=== PATIENT | female | born 1945 | race Caucasian/White ===

== ENCOUNTER 2020-06-22 18:03 | Inpatient (IN) | payer MEDICARE ==
[~2020-06-22] VITALS: Ht 160 cm; Wt 65.3 kg
--- NOTE | 2020-06-22 18:15 | NUR ---
bettina c/o hypoglycemia from b and c bs upon arrival was 21 d10 was given bs went up to 221. vs checked. awaiting md lanier
[2020-06-22] MEDS ORDERED: DEXTROSE 50%-WATER 50 ML DISP.SYRIN ONE (18:39)
--- NOTE | 2020-06-22 18:39 | NUR ---
PT TO CT
--- NOTE | 2020-06-22 18:44 | NUR ---
TELEMED REQUEST SENT
--- NOTE | 2020-06-22 18:49 | NUR ---
PT RETURN FROM CT
[2020-06-22 18:56] LABS: BASOPHILS # (AUTO) 0.4 /CMM (0.0-0.2); BASOPHILS % (AUTO) 1.7 % (0.0-2.0); HEMATOCRIT 40 % (33-45); HEMOGLOBIN 12.3 g/dL (11.5-14.8); LYMPHOCYTES # (AUTO) 2.4 /CMM (0.8-4.8); LYMPHOCYTES % (AUTO) 10.8 % (20.0-44.0); MEAN CORPUSCULAR HGB CONC 31 g/dl (31.0-36.0); MEAN CORPUSCULAR VOLUME 98 fL (82-100); MONOCYTES # (AUTO) 0.8 /CMM (0.1-1.30); MONOCYTES % (AUTO) 3.5 % (2.0-12.0); NEUTROPHILS # (AUTO) 18.9 /CMM (1.8-8.9); PLATELET COUNT (AUTO) 396 /CMM (150-450); RED BLOOD CELL COUNT(AUTO) 4.05 MIL/uL (4.0-5.2); WHITE BLOOD COUNT (AUTO) 22.6 K/uL (4.3-11.0)
--- NOTE | 2020-06-22 18:56 | NUR ---
YRIS FROM [facility] PT IS AN INDEPENDENT WILL FAX [facility] ADDRESS [id number] [facility] [id number]
[2020-06-22] MEDS ORDERED: Calcium Gluconate 1GM/10ML 4.65 MEQ in IV D5W 50 ML IV ONE ×6 (19:00→20:30)
[2020-06-22] MEDS ORDERED: DEXTROSE 50%-WATER 50 ML DISP.SYRIN IV ONE (19:00)
[2020-06-22] MEDS ORDERED: LORA-259 PO (19:24)
[2020-06-22] MEDS ORDERED: CARV12.52 PO (19:24)
[2020-06-22] MEDS ORDERED: FERR325T23 PO (19:24)
[2020-06-22] MEDS ORDERED: ONDA4TAB5 PO (19:24)
[2020-06-22] MEDS ORDERED: METF-441 PO (19:24)
[2020-06-22] MEDS ORDERED: HYDR25TA4 PO (19:24)
[2020-06-22] MEDS ORDERED: PRAV80TA21 PO (19:24)
[2020-06-22] MEDS ORDERED: VENL150C58 PO (19:24)
[2020-06-22] MEDS ORDERED: ZOLP5TAB8 PO (19:24)
[2020-06-22] MEDS ORDERED: DOCU250C14 PO (19:24)
[2020-06-22] MEDS ORDERED: FAMO20TA8 PO (19:24)
[2020-06-22] MEDS ORDERED: ASPI-992 PO (19:24)
[2020-06-22] MEDS ORDERED: ESCI10TA PO (19:24)
[2020-06-22] MEDS ORDERED: CETI-108 PO (19:24)
[2020-06-22] MEDS ORDERED: GABA-532 PO (19:24)
[2020-06-22] MEDS ORDERED: NOREPINEPHRINE 8 MG in IV NS 0.9% 250ML IV PRN (19:30)
--- NOTE | 2020-06-22 19:34 | NUR ---
report given to emmie lagunas for anup
[2020-06-22 20:01] LABS: BILIRUBIN,URINE Negative (NEGATIVE); BLOOD, URINE Negative Ery/uL (NEGATIVE); COLOR,URINE YELLOW (YELLOW); LEUKOCYTE ESTERASE ,URINE Negative (NEGATIVE); NITRITE, URINE Negative (NEGATIVE); PROTEIN,URINE 30 mg/dl (NEGATIVE); UGLUCOSE Negative (NEGATIVE); UROBILINOGEN,URINE 0.2 EU/dL (0.2)
--- NOTE | 2020-06-22 20:07 | NUR ---
RT AT BEDSIDE FOR ABG
--- NOTE | 2020-06-22 20:08 | NUR ---
FUR STRETCHER AT BEDSIDE FOR BLOOD DRAW
--- NOTE | 2020-06-22 20:08 | NUR ---
JOSEFA COLLECTED AND SENT TO LAB
[2020-06-22 20:22] LABS: RBC,URINE NONE SEEN /HPF (0-2); WBC,URINE NONE SEEN /HPF (0-3)
[2020-06-22 20:23] LABS: BACTERIA,URINE Rare /HPF (None Seen); SQUAMOUS EPITHELIAL CELL,UR Few /HPF (None Seen)
[2020-06-22 20:26] LABS: CALCIUM, SERUM 8.9 mg/dL (8.5-10.1); CHLORIDE 93 mmol/L (98-107); CREATININE 6.8 mg/dL (0.6-1.3); GLUCOSE 291 mg/dL (74-106); SODIUM SERUM 130 mmol/L (136-145); UREA NITROGEN, BLOOD 56 mg/dL (7-18)
[2020-06-22 20:29] LABS: CARBON DIOXIDE 8 mmol/L (21-32); POTASSIUM 10.1 mmol/L (3.5-5.1)
[2020-06-22] MEDS ORDERED: INSULIN REGULAR, HUMAN 100 UNIT/ML 10 ML VIAL IV ONE (20:30)
[2020-06-22] MEDS ORDERED: DEXTROSE 50%-WATER 50 ML DISP.SYRIN IVP ONE (20:30)
[2020-06-22] MEDS ORDERED: SODIUM BICARBONATE SYR 50 MEQ/50 ML DISP.SYRIN IV ONE (20:30)
[2020-06-22] MEDS ORDERED: ALBUTEROL FS 2.5 MG/3 ML VIAL.NEB NEB ONE (20:30)
[2020-06-22 20:36] LABS: CHOLESTEROL 104 mg/dL (<200); HDL CHOLESTEROL 25 mg/dL (40-60); LDL 48 mg/dL (0-99); TRIGLYCERIDES 219 mg/dL (30-150)
[2020-06-22] MEDS ORDERED: Calcium Gluconate 0.465 MEQ/ML VIAL IV ONE (20:40)
[2020-06-22 20:47] LABS: ALANINE AMINOTRANSFERASE 23 U/L (12-78); ALBUMIN 2.9 g/dL (3.4-5.0); ALKALINE PHOSPHATASE 60 U/L (46-116); ASPARTATE AMINOTRANSFERASE 31 U/L (15-37); BILIRUBIN,DIRECT 0.1 mg/dL (0.0-0.2); BILIRUBIN,TOTAL 0.1 mg/dL (0.2-1.0); TOTAL PROTEIN, SERUM 6.8 g/dL (6.4-8.2)
[2020-06-22 20:53] LABS: ABG OXYGEN SATURATION 97.3 % (92.0-98.5); ABG PCO2 13.4 mmHg (35.0-45.0); ABG PH 6.895 (7.350-7.450); ABG PO2 148.7 mmHg (75.0-100.0); AaDO2 92.4 mmHg; COHb 0.3 % (0.5-1.5); MetHb 0.3 % (0.0-1.5); O2Hb 96.7 % (94.0-97.0); SITE, ABG Left Radial; VENT MODE, BG 4L N/C
[2020-06-22] MEDS ORDERED: CEFTRIAXONE 1 G in IV D5W 50 ML IV ONE (21:00)
--- NOTE | 2020-06-22 21:04 | NUR ---
DR BOWMAN SPEAKING WITH DR THORNTON
--- NOTE | 2020-06-22 21:11 | NUR ---
BP NOTED AT 58/33. ORDERS RECEIVED
[2020-06-22] MEDS: NOREPINEPHRINE 8 MG in IV NS 0.9% 242 ML IV PRN (21:15)
[2020-06-22] MEDS ORDERED: CEFTRIAXONE 1GM BAG (ER ONLY) 50 ML IV ONE (21:21)
[2020-06-22] MEDS ORDERED: IV NS 0.9% 1,000 ML IV ONE (21:30)
[2020-06-22] MEDS ORDERED: NS 0.9% IV ONE (21:30)
[2020-06-22] MEDS ORDERED: SODIUM POLYSTYRENE SULFONATE 15 G/60 ML BOTTLE RC ONE (21:30)
--- NOTE | 2020-06-22 21:56 | NUR ---
REPORT GIVEN TO AMANDA CHACON FOR TELMA
[2020-06-22] MEDS ORDERED: SODIUM POLYSTYRENE SULFONATE 15 G/60 ML BOTTLE PO ONE (22:00)
[2020-06-22] MEDS ORDERED: PANTOPRAZOLE 80 MG in IV NS 0.9% 100 ML IV SCH (22:00)
--- NOTE | 2020-06-22 22:03 | NUR ---
Received report from AMANDA Paredes for TELMA.
--- NOTE | 2020-06-22 22:03 | NUR ---
DR BOWMAN ON THE PHONE W/ PATIENT
[2020-06-22] MEDS ORDERED: INSULIN REGULAR, HUMAN 100 UNIT/ML 3 ML VIAL SQ PRN (22:30)
[2020-06-22] MEDS ORDERED: ALPRAZOLAM 0.25 MG TABLET PO PRN (22:30)
[2020-06-22] MEDS ORDERED: DEXTROSE 50%-WATER 50 ML DISP.SYRIN IV PRN (22:30)
--- NOTE | 2020-06-22 22:37 | NUR ---
DR BO AT BEDSIDE
[2020-06-22 22:56] LABS: AMYLASE 268 U/L (25-115); LIPASE 295 U/L (73-393)
--- NOTE | 2020-06-22 23:34 | NUR ---
PT TRANSFERRED TO ICU PER ACLS PROTOCOL
[2020-06-22 23:35] VITALS: BP 128/62
[2020-06-22 23:45] VITALS: BP 142/68
--- NOTE | 2020-06-22 23:45 | NUR ---
ICU ADMISSION NOTE: Rec'd pt from ER via prema accompanied by RN and daljit. Transferred to bed. Admit dx: acute renal failure, hyperkalemia. Pt A&Ox3, on 4LPM NC tolerating well. No SOB or resp distress noted. Hooked up to monitor, SR. Skin intact. Right femoral HD catheter intact. Right hand #18 patent and flushed w Levo infusing at 0.2mcg/kg/min from ER. Will titrate per protocol. Max catheter in place patent and draining urine via gravity. HD nurse at bedside to perform emergency dialysis. Oriented to room and call light. Safety measures in place. Will continue to monitor.
[2020-06-22] MEDS ORDERED: SODIUM BICARBONATE SYR 50 MEQ/50 ML DISP.SYRIN ONE (23:52)
[2020-06-22 23:54] LABS: CALCIUM, SERUM 7.9 mg/dL (8.5-10.1); CHLORIDE 98 mmol/L (98-107); SODIUM SERUM 135 mmol/L (136-145); UREA NITROGEN, BLOOD 54 mg/dL (7-18)
[2020-06-22] MEDS ORDERED: PANTOPRAZOLE 40 MG VIAL ONE (23:54)
[2020-06-22] MEDS ORDERED: METRONIDAZOLE 500MG/ NS 100ML 100 ML IV ONE (23:55)
[2020-06-22 23:57] LABS: POTASSIUM 7.2 mmol/L (3.5-5.1)
[2020-06-22 23:58] LABS: CARBON DIOXIDE 7 mmol/L (21-32); GLUCOSE 413 mg/dL (74-106)
[2020-06-23] VITALS (77 sets, daily range): BP systolic 57–151; BP diastolic 20–114
--- NOTE | 2020-06-23 00:06 | NUR ---
CAMPAIGN MANAGEMENT SPECIALIST NOTE: Rec'd call from lab for critical results. [phone]: Paged Dr. Sosa to relay critical labs of K 7.2, CO2 7.1 and glucose 413. Gave orders to change ACHS sliding scale from mild to moderate and give coverage now. Orders noted and carried out. Will give dose once pharmacy verifies. Will continue to monitor.
[2020-06-23] MEDS: Sodium Bicarbonate 50 MEQ in IV 1/2NS 1000 ML 1,000 ML IV PRN ×3 (00:16→23:38)
[2020-06-23] MEDS: NOREPINEPHRINE 8 MG in IV NS 0.9% 242 ML IV PRN (00:28)
[2020-06-23] MEDS ORDERED: DEXTROSE 50%-WATER 50 ML DISP.SYRIN IV PRN (00:30)
[2020-06-23] MEDS ORDERED: IV NS 0.9% 250 ML IV PRN (00:30)
[2020-06-23] MEDS: METRONIDAZOLE 500MG/ NS 100ML 500 MG in PREMIX 1 EA IV SCH ×2 (00:50→06:00)
[2020-06-23] MEDS ORDERED: INSULIN REGULAR, HUMAN 100 UNIT/ML 10 ML VIAL SQ ONE (01:00)
--- NOTE | 2020-06-23 01:07 | NUR ---
CANTILEVER CRANE OPERATOR NOTE: Faxed Kayexelate order to rn physical therapy supervisor. Awaiting medication. Will administer once available.
--- NOTE | 2020-06-23 01:17 | NUR ---
CHEMICAL RESEARCH ENGINEER NOTE: Spoke w/ Dr. Sosa regarding pt's Levo order. Stated to continue and keep SBP >100. Order noted. Addendum: 06/23/20 at 0139 by INES SNIDER RN Also gave order for Lactic Acid in am.
--- NOTE | 2020-06-23 01:22 | NUR ---
MARINE TECHNICIAN NOTE: Dialysis complete, 1L out.
--- NOTE | 2020-06-23 01:50 | NUR ---
DIESEL LOCOMOTIVE CRANE OPERATOR NOTE: Pt temp noted to be 96.3. Placed pt on sunitha hugger and warm blankets. Will continue to monitor.
[2020-06-23] MEDS ORDERED: NOREPINEPHRINE 8 MG in IV NS 0.9% 242 ML IV PRN (02:00)
[2020-06-23] MEDS ORDERED: SODIUM POLYSTYRENE SULFONATE 15 G/60 ML BOTTLE ONE ×2 (02:10→02:14)
[2020-06-23 05:11] LABS: BASOPHILS % (AUTO) 0.1 % (0.0-2.0); HEMATOCRIT 34 % (33-45); HEMOGLOBIN 10.6 g/dL (11.5-14.8); LYMPHOCYTES # (AUTO) 3.5 /CMM (0.8-4.8); LYMPHOCYTES % (AUTO) 11.8 % (20.0-44.0); MEAN CORPUSCULAR HGB CONC 31 g/dl (31.0-36.0); MEAN CORPUSCULAR VOLUME 96 fL (82-100); MONOCYTES # (AUTO) 2.4 /CMM (0.1-1.30); NEUTROPHILS # (AUTO) 23.7 /CMM (1.8-8.9); NEUTROPHILS % (AUTO) 80.1 % (43.0-81.0); PLATELET COUNT (AUTO) 262 /CMM (150-450); RED BLOOD CELL COUNT(AUTO) 3.56 MIL/uL (4.0-5.2); WHITE BLOOD COUNT (AUTO) 29.7 K/uL (4.3-11.0)
[2020-06-23 05:26] LABS: ALANINE AMINOTRANSFERASE 46 U/L (12-78); ALBUMIN 2.9 g/dL (3.4-5.0); ALKALINE PHOSPHATASE 62 U/L (46-116); ASPARTATE AMINOTRANSFERASE 64 U/L (15-37); BILIRUBIN,TOTAL 0.2 mg/dL (0.2-1.0); CALCIUM, SERUM 8.3 mg/dL (8.5-10.1); CHLORIDE 96 mmol/L (98-107); CREATININE 5.2 mg/dL (0.6-1.3); GLUCOSE 176 mg/dL (74-106); POTASSIUM 5.6 mmol/L (3.5-5.1); SODIUM SERUM 136 mmol/L (136-145); TOTAL PROTEIN, SERUM 6.4 g/dL (6.4-8.2); UREA NITROGEN, BLOOD 41 mg/dL (7-18)
[2020-06-23 05:37] LABS: CARBON DIOXIDE 8 mmol/L (21-32)
[2020-06-23] MEDS ORDERED: METRONIDAZOLE 500MG/ NS 100ML 100 ML IV ONE (05:55)
--- NOTE | 2020-06-23 06:32 | NUR ---
CHEMICAL LAB TECHNICIAN NOTE: Rec'd critical labs from Ginny in lab. [phone]: Paged Dr. Sosa to relay critical labs: CO2 8, Lactic acid 14.8, WBC 29.7, K 5.6. Gave orders to do dialysis again today and stat CT of abd/pelvis. Noted and carried out
--- NOTE | 2020-06-23 06:44 | NUR ---
INSURANCE SALES PRODUCER NOTE: Pt transferred to CT via ACLS protocol accompanied by charge nurse.
--- NOTE | 2020-06-23 06:55 | NUR ---
DECAL DECORATOR NOTE: Pt back from CT. Hooked back up to monitor.
--- NOTE | 2020-06-23 07:04 | NUR ---
SCREEN PRINTER CLOSING NOTES: No acute changes noted throughout shift. Remains on 2LPM NC tolerating well. No SOB or resp distress noted throughout shift. SR on tele monitor. Right hand #18 and right femoral HD cath w/ pigtail patent and infusing 0.45%NS w/ 50meq Na bicarb at 100ml/hr. Max cath in place patent and draining urine. Kept clean/dry. Safety measures in place. Will endorse to oncoming nurse for TELMA.
--- NOTE | 2020-06-23 07:14 | NUR ---
ROTATING EQUIPMENT ENGINEER NOTE: Spoke w/ Dr. Regalado from radiology regarding pt's CT of abd/pelvis. Stated pt might have pancreatitis, and to check enzymes. Will endorse to morning nurse to relay to Dr. Sosa.
[2020-06-23] MEDS ORDERED: BLOOD SUGAR DIAGNOSTIC 1 EACH STRIP IN SCH (07:30)
[2020-06-23] MEDS: BLOOD SUGAR DIAGNOSTIC 1 EACH STRIP VI SCH ×4 (07:52→23:16)
[2020-06-23] MEDS: HYDROCODONE/APAP 5/325MG TABLET PO PRN ×3 (07:57→17:54)
--- NOTE | 2020-06-23 07:57 | NUR ---
RN NOTES RECEIVED PATIENT IN THE BED A/O X3, NO ACUTE RESPIRATORY DISTRESS, O2-2LNC, DN802AG/DL, WAS COMPLAINING OF PAIN LOWER BACK 02/05, ADMINISTERED NARCO 5/325 MG PO PRN, PATIENT TOLERATED BREAKFAST 50%. V/S STABLE. SEEN HOSPITALIST. PER HOSPITALIST Dr BOWMAN PATIENT GOING TO BE NPO AT THIS MOMENT EXCEPT MEDS FOR MORE TESTS. IV ACCESS ON RIGHT HAND INFUSING 1/2 NS WITH SODIUM BICARBONATE AT 50 ML/HR INTACT. ASSIST PATIENT TURN AND REPOSTION Q 2 HR, HERRERA DRAINING LIGHT YELLOW OUTPUT. CALL LIGHT WITHIN TO REACH, WILL MONITORING.
[2020-06-23] MEDS: FERROUS SULFATE (325 MG) 325 MG/TAB TABLET PO SCH (08:34)
[2020-06-23] MEDS: ASPIRIN 325 MG TABLET PO SCH (08:34)
[2020-06-23] MEDS: HEPARIN SODIUM, PORCINE 5000 UNITS/1 ML VIAL SQ SCH ×2 (08:35→21:21)
[2020-06-23] MEDS: VENLAFAXINE XR 150 MG CAP.SR.24H PO SCH (08:39)
[2020-06-23] MEDS ORDERED: FAMOTIDINE (20 MG) 20 MG TABLET PO SCH (09:00)
[2020-06-23] MEDS ORDERED: ESCITALOPRAM OXALATE (10 MG) 10 MG TABLET PO SCH (09:00)
[2020-06-23] MEDS: PIPERACILLIN /TAZOBACTAM 2.25 G in IV D5W 50 ML IV SCH ×3 (10:03→21:20)
[2020-06-23] MEDS: FAMOTIDINE/PF INJ 20 MG/2 ML VIAL IV SCH ×2 (10:06→21:20)
--- NOTE | 2020-06-23 12:37 | NUR ---
rn notes administered narco 5/325 mg po prn for generalized pain 03/08 per patient request, v/s taken bp 139/52, p- 89, r-19, , bs-70 mg/dl, patient NPO except meds.
[2020-06-23] MEDS ORDERED: METRONIDAZOLE 500MG/ NS 100ML 500 MG in PREMIX 1 EA IV SCH (13:00)
--- NOTE | 2020-06-23 17:54 | NUR ---
rn notes administered narco 5/325 mg po prn for generalized pain 03/08 per patient request, bp 134/82, p-86, r-16. bs-50 mg/dl, administered juice, and jell-o, called hospitalist, and get TO order start clear liquid diet again, order taken and carried out.
--- NOTE | 2020-06-23 18:32 | NUR ---
rn notes patient getting HD at this time, rechecked bs-66 mg/dl, medication were administered for pain effective, eating dinner, infusing 1/2 NS with bicarb sodium 100 ml/hr intact, Max catheter draining light yellow output, UA specimen collected from catheter port, call light within to reach. endorsed oncoming nurse follow plan of care.
--- NOTE | 2020-06-23 19:50 | NUR ---
ICU/INSIDE TECHNICAL SALES REPRESENTATIVE RANDOM BLOOD SUGAR CHECK WAS DONE TO SEE PT'S CURRENT BLOOD SUGAR, PT WAS HAVING LOW BLOOD SUGAR IN THE 60'S EARLIER. THIS WAS 105, FROM 60 EARLIER IN THE EVENING. WILL CONTUNE TO MONITOR THIS PT AND HER SUGAR ORDERED BY .
[2020-06-23 20:23] LABS: BILIRUBIN,URINE NEGATIVE (NEGATIVE); BLOOD, URINE MODERATE Ery/uL (NEGATIVE); COLOR,URINE YELLOW (YELLOW); LEUKOCYTE ESTERASE ,URINE NEGATIVE (NEGATIVE); NITRITE, URINE NEGATIVE (NEGATIVE); PH,URINE 5.5 (5.0-8.0); PROTEIN,URINE 30 mg/dl (NEGATIVE); UGLUCOSE NEGATIVE (NEGATIVE); UROBILINOGEN,URINE 0.2 EU/dL (0.2)
[2020-06-23 20:56] LABS: EOSINOPHIL,URINE None Seen
[2020-06-23 20:57] LABS: BACTERIA,URINE Few /HPF (None Seen); SQUAMOUS EPITHELIAL CELL,UR Few /HPF (None Seen); URINE AMORPHOUS URATE Few /HPF (None Seen); WBC,URINE 0-2 /HPF (0-3)
--- NOTE | 2020-06-23 21:45 | NUR ---
ICU/INTERNAL CONTROLS MANAGER HEMODIALYSIS WAS COMPETED, HD NURSE TOOK OFF 200ML OF FLUID. PT REQUESTED TO GO TO THE COMMODE, PT HAD A LARGE, WATERY, GREEN BM.
--- NOTE | 2020-06-23 22:50 | NUR ---
ICU/CLINICAL PARTNER PT WAS ASST TO BEDSIDE COMMODE. PT WAS THEN PROVIDED PM CARE, WHICH SHE TOLERATED WELL. PT REMAINS ON 2 LITERS N/C WITH SATURATION AT 95%. PT TURNS SELF AND REPOSITIONS SELF FOR COMFORT AND CARE. CALL LIGHT WITHIN REACH, NO ACUTE DISTRESS SEEN. WILL CONTINUE TO MONITOR THIS PT
--- NOTE | 2020-06-23 23:35 | NUR ---
ICU/BALLOON PILOT PT WAS UP TO BEDSIDE COMMODE WITH ASST, WATERY STOOL. PT TURNS SELF AND REPOSITIONS SELF FOR COMFORT AND CARE. CALL LIGHT WITHIN REACH, NO ACUTE DISTRESS SEEN. WILL CONTINUE TO MONITOR THIS PT
[2020-06-24] VITALS (18 sets, daily range): BP systolic 107–148; BP diastolic 42–71
--- NOTE | 2020-06-24 00:10 | NUR ---
ICU/INTERNAL COMBUSTION ENGINE INSPECTOR URINE WAS COLLECTED TO SEND FOR A URINE PROFILE, URINE SENT EARLIER WAS NOT ENOUGH, THIS WAS COLLECTED AND SENT.
[2020-06-24 00:13] LABS: CREATININE, URINE 19.6 MG/DL (30.0-125.0); URINE TOTAL PROTEIN 58.4 mg/dL (0-11.9)
--- NOTE | 2020-06-24 02:20 | NUR ---
ICU/TURBINATED BONE GRINDER PT APPEARS TO BE ASLEEP, RESTINGS COMFORTABLE, CALL LIGHT WITHIN REACH. NO ACUTE DISTRESS SEEN AT THIS TIME.
--- NOTE | 2020-06-24 03:36 | NUR ---
ICU/EDUCATIONAL TECHNOLOGIST AM LABS WERE DONE AWAIT FOR ANY ABNORMAL RESULTS.
[2020-06-24] MEDS: PIPERACILLIN /TAZOBACTAM 2.25 G in IV D5W 50 ML IV SCH ×3 (04:36→20:21)
[2020-06-24 04:43] LABS: BASOPHILS % (AUTO) 0.2 % (0.0-2.0); EOSINOPHILS % (AUTO) 0.3 % (0.0-6.0); HEMATOCRIT 26 % (33-45); HEMOGLOBIN 8.9 g/dL (11.5-14.8); LYMPHOCYTES % (AUTO) 18.9 % (20.0-44.0); MEAN CORPUSCULAR HGB CONC 34 g/dl (31.0-36.0); MEAN CORPUSCULAR VOLUME 91 fL (82-100); MONOCYTES # (AUTO) 0.9 /CMM (0.1-1.30); MONOCYTES % (AUTO) 8.7 % (2.0-12.0); NEUTROPHILS # (AUTO) 7.6 /CMM (1.8-8.9); NEUTROPHILS % (AUTO) 71.9 % (43.0-81.0); PLATELET COUNT (AUTO) 177 /CMM (150-450); RED BLOOD CELL COUNT(AUTO) 2.92 MIL/uL (4.0-5.2); WHITE BLOOD COUNT (AUTO) 10.5 K/uL (4.3-11.0)
[2020-06-24 04:58] LABS: CREATINE KINASE, TOTAL 213 U/L (26-192)
[2020-06-24 05:05] LABS: ALANINE AMINOTRANSFERASE 36 U/L (12-78); ALBUMIN 2.7 g/dL (3.4-5.0); ALKALINE PHOSPHATASE 49 U/L (46-116); ASPARTATE AMINOTRANSFERASE 45 U/L (15-37); BILIRUBIN,TOTAL 0.3 mg/dL (0.2-1.0); CALCIUM, SERUM 7.3 mg/dL (8.5-10.1); CARBON DIOXIDE 27 mmol/L (21-32); CHLORIDE 100 mmol/L (98-107); CREATININE 3.1 mg/dL (0.6-1.3); GLUCOSE 117 mg/dL (74-106); MAGNESIUM 1.5 mg/dL (1.8-2.4); PHOSPHORUS 3.7 mg/dL (2.5-4.9); POTASSIUM 3.5 mmol/L (3.5-5.1); SODIUM SERUM 137 mmol/L (136-145); TOTAL PROTEIN, SERUM 5.6 g/dL (6.4-8.2); UREA NITROGEN, BLOOD 23 mg/dL (7-18)
[2020-06-24 05:13] LABS: LIPASE 3352 U/L (73-393)
--- NOTE | 2020-06-24 05:30 | NUR ---
ICU/OPERATIONS LIAISON PT COMPLAINED ABOUT PAIN TO BACK, RATED AT 7/10. GAVE 1 TAB NORCO FOR THIS. WILL CONTINUE TO MONITOR THIS PT.
[2020-06-24] MEDS: BLOOD SUGAR DIAGNOSTIC 1 EACH STRIP VI SCH ×4 (05:34→22:31)
[2020-06-24] MEDS: HYDROCODONE/APAP 5/325MG TABLET PO PRN ×3 (05:35→16:24)
--- NOTE | 2020-06-24 08:09 | NUR ---
received pt from shift leader, a/o x4, SR, on 2L 02 sat well, lungs clear, no edema, having HD now, f/c good output, tolerates feeding, v/s stable, no pain, pt turns and repositions by herself.
[2020-06-24] MEDS: ASPIRIN 325 MG TABLET PO SCH (08:44)
[2020-06-24] MEDS: FAMOTIDINE/PF INJ 20 MG/2 ML VIAL IV SCH ×2 (08:44→20:20)
[2020-06-24] MEDS: FERROUS SULFATE (325 MG) 325 MG/TAB TABLET PO SCH (08:44)
[2020-06-24] MEDS: VENLAFAXINE XR 150 MG CAP.SR.24H PO SCH (08:46)
[2020-06-24] MEDS: HEPARIN SODIUM, PORCINE 5000 UNITS/1 ML VIAL SQ SCH ×2 (08:46→20:29)
[2020-06-24] MEDS: Sodium Bicarbonate 50 MEQ in IV 1/2NS 1000 ML 1,000 ML IV PRN (08:59)
[2020-06-24 10:42] LABS: IRON, SERUM 148 ug/dl (50-175); TOTAL IRON BINDING CAPACITY 247 ug/dl (250-450)
[2020-06-24 10:57] LABS: FERRITIN 110 ng/mL (8-388)
[2020-06-24] MEDS ORDERED: IV NS 0.9% 1,000 ML IV ONE (12:00)
--- NOTE | 2020-06-24 13:30 | NUR ---
RECEIVED REPORT FOR PT. PT TRANSFERED VIA BED TO [facility] ROOM 102 ACCOMPANIED BY TWO ICU RNS. PT STABLE. VERBALIZED UNDERSTANDING SITUATION. VS STABLE. ALL ORDERS TO BE CONTINUED.
--- NOTE | 2020-06-24 13:41 | NUR ---
pt transferred to [facility], v/s stable, report given to Jenise
[2020-06-24] MEDS: INSULIN REGULAR, HUMAN 100 UNIT/ML 3 ML VIAL SQ PRN (17:37)
--- NOTE | 2020-06-24 18:19 | NUR ---
PT A/O X4. HOB ELEVATED. NC 2L/MIN. NO SOB NO DISTRESS. REPORTS 7/10 PAIN UNRELIEVED BY ORDERED NORCO IN RUQ THAT FEELS BETTER WHEN KNEES BENT. INFORMED MD. AWAITING ORDERS. SINUS RHYTHM ON TELE. TOLERATING CLEAR LIQUID BUT REPORTS POOR APPETITE. R FEM HD CATH RUNNING ORDERED NS. DRESSING DRY AND INTACT. PT PAIN MONITORED THROUGHOUT SHIFT AND MONITORED RESPIRATORY STATUS. ALL HOSPITAL POLICY SAFETY PRECAUTIONS WERE FOLLOWED. WILL ENDORSE TO PM AMANDA.
--- NOTE | 2020-06-24 20:00 | NUR ---
MS RN NOTES PT A/O X4. HOB ELEVATED. NC 2L/MIN. NO SOB NO DISTRESS. TOLERATING CLEAR LIQUID . RIGHT FEM HD CATH WITH DRESSING DRY AND INTACT. PT C/O OF ABDOMINAL PAIN PER PTS G[place] NOT WORKING SPOKE TO DR BOWMAN WITH ORDER DILAUDID 0.5 MG IV Q 3HRS PRN FOR PAIN ALL DUE MEDS GIVEN ORDERED PTS ON F/C DRAINING WITH YELLOWISH URINE OUTPUT. ALL HOSPITAL POLICY SAFETY PRECAUTIONS WERE FOLLOWED.V/S STABLE AFEBRILE ,ALL NEEDS ATTENDED TOO CALLLIGHT WITHIN REACH ,KEPT PTS CLEAN DRY AND COMFORTABLE ,WILL CONTINUE TO MONITOR PTS.
[2020-06-24] MEDS: HYDROMORPHONE 1 MG/1 ML DISP.SYRIN IV PRN (20:22)
--- NOTE | 2020-06-24 22:00 | NUR ---
MS RN NOTES BLOOD SUGAR OF 119 AT 10PM NO INSULIN COVERAGE GIVEN PER INSULIN SLIDING SCALE. WILL CONTINUE TO MONITOR PTS.
[2020-06-24] MEDS: *INSULIN REGULAR(HUMULIN R)HUM 100 UNIT/ML VIAL SQ PRN (22:33)
[2020-06-25 04:00] VITALS: BP 150/56
[2020-06-25] MEDS: PIPERACILLIN /TAZOBACTAM 2.25 G in IV D5W 50 ML IV SCH ×3 (04:22→21:19)
--- NOTE | 2020-06-25 05:42 | NUR ---
ms rn note pts in bed awake and responsive with period confusion, all needs attended too bed alarm on ,will endorse to rn day shift for continuity of care, v/s stable afebrile.
[2020-06-25 06:06] LABS: BASOPHILS % (AUTO) 0.2 % (0.0-2.0); EOSINOPHILS % (AUTO) 0.2 % (0.0-6.0); HEMATOCRIT 28 % (33-45); HEMOGLOBIN 9.4 g/dL (11.5-14.8); LYMPHOCYTES # (AUTO) 1.4 /CMM (0.8-4.8); LYMPHOCYTES % (AUTO) 15.5 % (20.0-44.0); MEAN CORPUSCULAR HGB CONC 34 g/dl (31.0-36.0); MEAN CORPUSCULAR VOLUME 91 fL (82-100); MONOCYTES # (AUTO) 0.8 /CMM (0.1-1.30); MONOCYTES % (AUTO) 8.9 % (2.0-12.0); NEUTROPHILS # (AUTO) 6.9 /CMM (1.8-8.9); NEUTROPHILS % (AUTO) 75.2 % (43.0-81.0); PLATELET COUNT (AUTO) 147 /CMM (150-450); RED BLOOD CELL COUNT(AUTO) 3.07 MIL/uL (4.0-5.2); WHITE BLOOD COUNT (AUTO) 9.2 K/uL (4.3-11.0)
[2020-06-25 06:07] LABS: CALCIUM, SERUM 7.9 mg/dL (8.5-10.1); CARBON DIOXIDE 27 mmol/L (21-32); CHLORIDE 102 mmol/L (98-107); CREATININE 2.4 mg/dL (0.6-1.3); GLUCOSE 160 mg/dL (74-106); POTASSIUM 2.9 mmol/L (3.5-5.1); SODIUM SERUM 141 mmol/L (136-145); UREA NITROGEN, BLOOD 17 mg/dL (7-18)
[2020-06-25 06:22] LABS: ALANINE AMINOTRANSFERASE 32 U/L (12-78); ALKALINE PHOSPHATASE 56 U/L (46-116); ASPARTATE AMINOTRANSFERASE 32 U/L (15-37); BILIRUBIN,TOTAL 0.6 mg/dL (0.2-1.0); LIPASE 679 U/L (73-393); MAGNESIUM 1.6 mg/dL (1.8-2.4); PHOSPHORUS 2.5 mg/dL (2.5-4.9); TOTAL PROTEIN, SERUM 6.4 g/dL (6.4-8.2)
--- NOTE | 2020-06-25 07:28 | NUR ---
PT A/O X4 W EPISODES OF CONFUSION. HOB ELEVATED. NC 2L/MIN. NO SOB NO DISTRESS. REPORTS 7/10 PAIN IN RUQ THAT FEELS BETTER WHEN KNEES BENT. TOLERATING CLEAR LIQUID BUT REPORTS POOR APPETITE. R FEM HD CATH FLUSHED AND PATENT. DRESSING DRY AND INTACT. PT PAIN WILL BE MONITORED THROUGHOUT SHIFT AND WILL MONITOR RESPIRATORY STATUS. ALL HOSPITAL POLICY SAFETY PRECAUTIONS WERE FOLLOWED. MONITORING ELECTROLYTES AND REPORTING TO MD WELL FOLLOWING ORDERS.
[2020-06-25 08:00] VITALS: BP 151/71
[2020-06-25] MEDS: Magnesium 1GM/D5W 100ML PREMIX 100 ML IV SCH ×2 (08:29→10:06)
[2020-06-25] MEDS: VENLAFAXINE XR 150 MG CAP.SR.24H PO SCH (08:29)
[2020-06-25] MEDS: FERROUS SULFATE (325 MG) 325 MG/TAB TABLET PO SCH (08:29)
[2020-06-25] MEDS: ASPIRIN 325 MG TABLET PO SCH (08:29)
[2020-06-25] MEDS: BLOOD SUGAR DIAGNOSTIC 1 EACH STRIP VI SCH ×4 (08:29→21:57)
[2020-06-25] MEDS: FAMOTIDINE/PF INJ 20 MG/2 ML VIAL IV SCH ×2 (08:30→21:19)
[2020-06-25] MEDS: HEPARIN SODIUM, PORCINE 5000 UNITS/1 ML VIAL SQ SCH ×2 (08:31→21:22)
[2020-06-25] MEDS ORDERED: POTASSIUM CHLORIDE 20 MEQ TAB.PRT.SR PO SCH (09:00)
[2020-06-25] MEDS ORDERED: POTASSIUM CHLORIDE 20 MEQ TAB.PRT.SR PO ONE (10:00)
[2020-06-25] MEDS ORDERED: AMLODIPINE BESYLATE 2.5 MG TABLET PO SCH (10:00)
[2020-06-25] MEDS: HYDROMORPHONE 1 MG/1 ML DISP.SYRIN IV PRN ×2 (10:12→22:49)
[2020-06-25] MEDS ORDERED: ONDANSETRON HCL/PF 4 MG/2 ML VIAL IV PRN (10:30)
[2020-06-25 12:00] VITALS: BP 151/74
[2020-06-25] MEDS: INSULIN REGULAR, HUMAN 100 UNIT/ML 3 ML VIAL SQ PRN ×2 (12:21→21:58)
--- NOTE | 2020-06-25 15:46 | NUR ---
PT TRANSFERED TO [facility] VIA WHEELCHAIR. ALL BELONGINGS BROUGHT. FAMILY UPDATED.
[2020-06-25 16:00] VITALS: BP 120/61
--- NOTE | 2020-06-25 17:33 | NUR ---
PT REFUSING ACCUCHECK. EXPLAINED PURPOSE AND BENEFIT OF ACCUCHECK. PT UNCOOPERATIVE AND INSISTS ON DECLINING. PT REPORTS SHE DOES NOT WANT TO EAT EITHER. WILL CONTINUE TO EDUCATE PATIENT ON NEED FOR ACCUCHECK. PT REFUSES TO ENTER ROOM 324-2. FAMILY MADE AWARE. CHARGE NURSE MADE AWARE. AWAITING OPEN ROOMS FOR DISCHARGES TO PLACE PT ALONE. PT REFUSES TO SHARE ROOM WITH OTHERS. FAMILY AWARE.
--- NOTE | 2020-06-25 19:00 | NUR ---
PT IN ROOM 309-1 RESTING COMFORTABLY. NO SIGNS OF DISTRESS.
--- NOTE | 2020-06-25 19:05 | NUR ---
PT A/O X3, EXHIBITING MILD CONFUSION. INCREASED ENERGY LEVELS THROUGHOUT SHIFT. HOB ELEVATED. RA SAO2 93% AND ABOVE. NO SOB NO DISTRESS. REPORTS 5/10 PAIN IN RUQ THAT FEELS BETTER WHEN KNEES BENT. MD AWARE. TOLERATING CLEAR LIQUID BUT REPORTS POOR APPETITE. R FEM HD CATH FLUSHED AND DRESSING DRY AND INTACT. HERRERA INTACT DRAINED YELLOW AND CLEAR URINE. PT PAIN MONITORED THROUGHOUT SHIFT AND MONITORED RESPIRATORY STATUS. ALL HOSPITAL POLICY SAFETY PRECAUTIONS WERE FOLLOWED. WILL ENDORSE TO PM RN.
--- NOTE | 2020-06-25 19:46 | NUR ---
RN OPENING NOTES PATIENT RECEIVED RESTING IN BED, A/O X 3. SLIGHTLY CONFUSED. STABLE ON RA WITH BREATHING EVEN AND UNLABORED, NO SOB NOTED. NO SIGNS OF ACUTE DISTRESS. SLIGHT COMPLAINTS OF PAIN AND DISCOMFORT AT THE MOMENT IN THE RUQ. R FEMORAL HD CATH WITH PIGTAIL PATENT AND NOTED. HERRERA CATH NOTED AND IN PLACE DRAINING CLAR YELLOW URINE. SAFETY PRECAUTIONS IN PLACE WITH BED IN LOWEST POSITION, CALL LIGHT WITHIN REACH, BREAKS ON, SIDE RAILS UP. WILL CONTINUE TO MONITOR THROUGHOUT THE NIGHT.
[2020-06-25 20:57] VITALS: BP 173/81
[2020-06-25 21:10] VITALS: BP 161/77
--- NOTE | 2020-06-25 22:32 | NUR ---
SPOKE WITH DAUGHTER JAZMIN ON PATIENT UPDATE.
[2020-06-26 01:06] LABS: PTH, INTACT 41 pg/mL (15-65)
[2020-06-26] MEDS: HYDROMORPHONE 1 MG/1 ML DISP.SYRIN IV PRN (02:22)
[2020-06-26] MEDS: PIPERACILLIN /TAZOBACTAM 2.25 G in IV D5W 50 ML IV SCH ×3 (05:00→22:05)
[2020-06-26 06:18] LABS: BASOPHILS % (AUTO) 0.4 % (0.0-2.0); EOSINOPHILS % (AUTO) 0.1 % (0.0-6.0); HEMATOCRIT 29 % (33-45); HEMOGLOBIN 10.2 g/dL (11.5-14.8); LYMPHOCYTES # (AUTO) 1.7 /CMM (0.8-4.8); LYMPHOCYTES % (AUTO) 17.7 % (20.0-44.0); MEAN CORPUSCULAR HGB CONC 35 g/dl (31.0-36.0); MEAN CORPUSCULAR VOLUME 89 fL (82-100); MONOCYTES # (AUTO) 0.9 /CMM (0.1-1.30); MONOCYTES % (AUTO) 8.9 % (2.0-12.0); NEUTROPHILS % (AUTO) 72.9 % (43.0-81.0); PLATELET COUNT (AUTO) 167 /CMM (150-450); RED BLOOD CELL COUNT(AUTO) 3.32 MIL/uL (4.0-5.2); WHITE BLOOD COUNT (AUTO) 9.6 K/uL (4.3-11.0)
[2020-06-26 06:30] LABS: ALANINE AMINOTRANSFERASE 30 U/L (12-78); ALBUMIN 3.3 g/dL (3.4-5.0); ALKALINE PHOSPHATASE 72 U/L (46-116); ASPARTATE AMINOTRANSFERASE 36 U/L (15-37); BILIRUBIN,TOTAL 0.7 mg/dL (0.2-1.0); CALCIUM, SERUM 8.4 mg/dL (8.5-10.1); CARBON DIOXIDE 27 mmol/L (21-32); CHLORIDE 99 mmol/L (98-107); CREATININE 1.9 mg/dL (0.6-1.3); GLUCOSE 151 mg/dL (74-106); LIPASE 258 U/L (73-393); PHOSPHORUS 2.6 mg/dL (2.5-4.9); SODIUM SERUM 139 mmol/L (136-145); TOTAL PROTEIN, SERUM 7.4 g/dL (6.4-8.2); UREA NITROGEN, BLOOD 15 mg/dL (7-18)
[2020-06-26] MEDS: BLOOD SUGAR DIAGNOSTIC 1 EACH STRIP VI SCH ×4 (06:32→22:31)
[2020-06-26] MEDS: INSULIN REGULAR, HUMAN 100 UNIT/ML 3 ML VIAL SQ PRN ×2 (06:33→17:40)
[2020-06-26 06:35] LABS: POTASSIUM 2.6 mmol/L (3.5-5.1)
--- NOTE | 2020-06-26 06:40 | NUR ---
CRITICAL LAB VALUE OF POTASSIUM 2.6 REPORTED. MD TINEO NOTIFIED. AWAITING ORDERS. PATIENT SHOWS NO SIGNS OF ACUTE DISTRESS.
--- NOTE | 2020-06-26 06:47 | NUR ---
RIVKA ORDERED 40 MEQ POTASSIUM PO AND 40 MEQ POTASSIUM IV. ORDERS CARRIED OUT.
--- NOTE | 2020-06-26 06:56 | NUR ---
RN CLOSING NOTES PATIENT RESTING IN BED, A/O X 3. SLIGHTLY CONFUSED. STABLE ON RA WITH BREATHING EVEN AND UNLABORED, NO SOB NOTED. NO SIGNS OF ACUTE DISTRESS. NO COMPLAINTS OF PAIN OR DISCOMFORT AT THE MOMENT. R FEMORAL HD CATH WITH PIGTAIL PATENT AND NOTED. HERRERA CATH NOTED AND IN PLACE DRAINING CLEAR YELLOW URINE, 900 OUTPUT OFF CLEAR YELLOW URINE. SAFETY PRECAUTIONS IN PLACE WITH BED IN LOWEST POSITION, CALL LIGHT WITHIN REACH, BREAKS ON, SIDE RAILS UP. ALL NEEDS ATTENDED TO. WILL ENDORSE TO ONCOMING SHIFT ABOUT TELMA.
[2020-06-26] MEDS ORDERED: POTASSIUM CHLORIDE 20 MEQ TAB.PRT.SR PO ONE (07:00)
[2020-06-26] MEDS ORDERED: POTASSIUM CHLORIDE 10 MEQ/50 ML PREMIXED IVPB FOR PERIPHERAL LINE IV ONE (07:00)
--- NOTE | 2020-06-26 07:10 | NUR ---
ms rn received on bed, awake,alert,oriented x3,not in any form of distress noted, lungs are diminished,abdomen soft,positive bowel sounds,denies pain at this time,will monitor patient.
[2020-06-26 08:00] VITALS: BP 151/87
[2020-06-26 08:30] VITALS: BP 135/89
--- NOTE | 2020-06-26 09:00 | NUR ---
ms rn was seen by dr. champagne, awaiting for orders.
[2020-06-26] MEDS: VENLAFAXINE XR 150 MG CAP.SR.24H PO SCH (09:26)
[2020-06-26] MEDS: FAMOTIDINE/PF INJ 20 MG/2 ML VIAL IV SCH (09:26)
[2020-06-26] MEDS: FERROUS SULFATE (325 MG) 325 MG/TAB TABLET PO SCH (09:26)
[2020-06-26] MEDS: ASPIRIN 325 MG TABLET PO SCH (09:26)
[2020-06-26] MEDS: HEPARIN SODIUM, PORCINE 5000 UNITS/1 ML VIAL SQ SCH ×2 (09:27→22:08)
--- NOTE | 2020-06-26 10:00 | NUR ---
ms rn was seen by dr. littlejohn ,no order for hd today.
[2020-06-26] MEDS: HYDROCODONE/APAP 5/325MG TABLET PO PRN ×3 (10:15→23:23)
--- NOTE | 2020-06-26 12:00 | NUR ---
mks rn ms rn refused accu check, no s/s of hyperglycemia noted.
[2020-06-26 16:00] VITALS: BP 168/87
[2020-06-26 17:29] LABS: CALCIUM, SERUM 8.3 mg/dL (8.5-10.1); CARBON DIOXIDE 26 mmol/L (21-32); CHLORIDE 105 mmol/L (98-107); CREATININE 1.7 mg/dL (0.6-1.3); GLUCOSE 145 mg/dL (74-106); POTASSIUM 3.2 mmol/L (3.5-5.1); SODIUM SERUM 141 mmol/L (136-145); UREA NITROGEN, BLOOD 13 mg/dL (7-18)
[2020-06-26 17:30] VITALS: BP 155/93
--- NOTE | 2020-06-26 17:30 | NUR ---
ms lagunas bs - 134-2 units of regular insulin given sq.
--- NOTE | 2020-06-26 18:41 | NUR ---
ms rn on bed, no distress noted.
--- NOTE | 2020-06-26 19:39 | NUR ---
RN NOTES RECEIVED PATIENT RESTING IN BED, ALERT/ORIENTED X 3. SLIGHTLY CONFUSED. STABLE ON RA WITH BREATHING EVEN AND UNLABORED, NO SOB NOTED. NO SIGNS OF ACUTE RESPIRATORY DISTRESS. SLIGHT COMPLAINTS OF PAIN AND DISCOMFORT AT THE MOMENT IN THE RUQ. REPOSITIONED FOR COMFORT. R FEMORAL HD CATH WITH PIGTAIL PATENT AND NOTED. HERRERA CATH NOTED AND IN PLACE DRAINING CLEAR YELLOW URINE OUTPUT. SAFETY PRECAUTIONS IN PLACE WITH BED IN LOWEST POSITION, CALL LIGHT WITHIN EASY REACH, BREAKS ON, SIDE RAILS UP. ASPIRATION PRECAUTION EMPHASIZED. ALL NEEDS ANTICIPATED. WILL CONTINUE TO MONITOR ACCORDINGLY.
[2020-06-26] MEDS: ACETAMINOPHEN 325 MG TABLET PO PRN (19:47)
[2020-06-26 20:00] VITALS: BP 163/83
[2020-06-26 20:40] VITALS: BP 163/83
[2020-06-26] MEDS: FAMOTIDINE (20 MG) 20 MG TABLET PO SCH (22:03)
[2020-06-26] MEDS: *INSULIN REGULAR(HUMULIN R)HUM 100 UNIT/ML VIAL SQ PRN (22:36)
[2020-06-27] MEDS: ACETAMINOPHEN 325 MG TABLET PO PRN ×2 (04:59→22:09)
[2020-06-27] MEDS: PIPERACILLIN /TAZOBACTAM 2.25 G in IV D5W 50 ML IV SCH (05:04)
[2020-06-27 05:56] LABS: BASOPHILS % (AUTO) 0.5 % (0.0-2.0); EOSINOPHILS % (AUTO) 1.2 % (0.0-6.0); HEMATOCRIT 28 % (33-45); HEMOGLOBIN 9.5 g/dL (11.5-14.8); LYMPHOCYTES # (AUTO) 1.9 /CMM (0.8-4.8); LYMPHOCYTES % (AUTO) 27.8 % (20.0-44.0); MEAN CORPUSCULAR HGB CONC 34 g/dl (31.0-36.0); MEAN CORPUSCULAR VOLUME 90 fL (82-100); MONOCYTES # (AUTO) 0.6 /CMM (0.1-1.30); MONOCYTES % (AUTO) 9.4 % (2.0-12.0); NEUTROPHILS # (AUTO) 4.1 /CMM (1.8-8.9); NEUTROPHILS % (AUTO) 61.1 % (43.0-81.0); PLATELET COUNT (AUTO) 193 /CMM (150-450); RED BLOOD CELL COUNT(AUTO) 3.06 MIL/uL (4.0-5.2); WHITE BLOOD COUNT (AUTO) 6.7 K/uL (4.3-11.0)
[2020-06-27 06:09] LABS: ALANINE AMINOTRANSFERASE 31 U/L (12-78); ALBUMIN 3.1 g/dL (3.4-5.0); ALKALINE PHOSPHATASE 73 U/L (46-116); ASPARTATE AMINOTRANSFERASE 38 U/L (15-37); BILIRUBIN,TOTAL 0.7 mg/dL (0.2-1.0); CALCIUM, SERUM 8.3 mg/dL (8.5-10.1); CARBON DIOXIDE 26 mmol/L (21-32); CHLORIDE 102 mmol/L (98-107); CREATININE 1.6 mg/dL (0.6-1.3); GLUCOSE 128 mg/dL (74-106); LIPASE 225 U/L (73-393); MAGNESIUM 1.5 mg/dL (1.8-2.4); PHOSPHORUS 2.4 mg/dL (2.5-4.9); POTASSIUM 3.1 mmol/L (3.5-5.1); SODIUM SERUM 138 mmol/L (136-145); UREA NITROGEN, BLOOD 12 mg/dL (7-18)
[2020-06-27 06:40] LABS: CREATININE, URINE 16.8 MG/DL (30.0-125.0); URINE TOTAL PROTEIN 28.3 mg/dL (0-11.9)
[2020-06-27] MEDS: BLOOD SUGAR DIAGNOSTIC 1 EACH STRIP VI SCH ×4 (06:47→22:27)
--- NOTE | 2020-06-27 07:06 | NUR ---
RN NOTES ALL NEEDS ATTENDED AND MET. ABLE TO REST AND SLEPT AT INTERVALS.PATIENT RESTING IN BED, AT THIS TIME.ALERT/ORIENTED X 3. SLIGHTLY CONFUSED. STABLE ON RA WITH BREATHING EVEN AND UNLABORED, NO SOB NOTED. NO SIGNS OF ACUTE RESPIRATORY DISTRESS. SLIGHT COMPLAINTS OF PAIN AND DISCOMFORT AT THE MOMENT IN THE RUQ. REPOSITIONED FOR COMFORT. R FEMORAL HD CATH WITH PIGTAIL PATENT AND NOTED. HERRERA CATH NOTED AND IN PLACE DRAINING CLEAR YELLOW URINE OUTPUT. SAFETY PRECAUTIONS IN PLACE WITH BED IN LOWEST POSITION, CALL LIGHT WITHIN EASY REACH, BREAKS ON, SIDE RAILS UP. ASPIRATION PRECAUTION EMPHASIZED. ALL NEEDS ANTICIPATED. WILL ENDORSE TO AM NURSE FOR CONTINUITY OF CARE.
--- NOTE | 2020-06-27 08:01 | NUR ---
MS PATEL OPEN NOTES PATIENT IS A/O X 3 WITH NO SIGNS OF DISTRESS IN ROOM AIR. NO COMPLAIN OF PAIN AT THIS MOMENT. HERRERA CATHETER INTACT. R FEMORAL HD CATH WITH PIGTAIL. SAFETY MEASURES ARE APPLIED. BED IS IN LOWEST LOCKED POSITION WITH SIDE RAILS UP X 2 FOR SAFETY. CALL LIGHT IS WITHIN REACH. WILL CONTINUE TO MONITOR.
[2020-06-27] MEDS ORDERED: POTASSIUM CHLORIDE 10 MEQ/50 ML PREMIXED IVPB FOR PERIPHERAL LINE IV ONE (09:00)
[2020-06-27] MEDS ORDERED: POTASSIUM CHLORIDE 20 MEQ TAB.PRT.SR PO ONE (09:00)
[2020-06-27] MEDS ORDERED: ERYTHROMYCIN BASE OPHTH 3.5 GM TUBE EACHEYE SCH (09:00)
[2020-06-27] MEDS: ERYTHROMYCIN BASE OPHTH 3.5 GM TUBE EACHEYE SCH ×2 (10:50→22:05)
[2020-06-27] MEDS: ASPIRIN 325 MG TABLET PO SCH (10:50)
[2020-06-27] MEDS: Magnesium 1GM/D5W 100ML PREMIX 100 ML IV SCH ×3 (10:50→14:41)
[2020-06-27] MEDS: FAMOTIDINE (20 MG) 20 MG TABLET PO SCH ×2 (10:50→21:59)
[2020-06-27] MEDS: K PHOS NEUTRAL 250 MG TABLET PO SCH ×3 (10:51→16:46)
[2020-06-27] MEDS: FERROUS SULFATE (325 MG) 325 MG/TAB TABLET PO SCH (10:52)
[2020-06-27] MEDS: AMLODIPINE BESYLATE 5 MG TABLET PO SCH (10:52)
[2020-06-27] MEDS: VENLAFAXINE XR 150 MG CAP.SR.24H PO SCH (10:53)
[2020-06-27] MEDS: CARVEDILOL 12.5 MG TABLET PO SCH ×2 (10:53→16:46)
[2020-06-27] MEDS: HEPARIN SODIUM, PORCINE 5000 UNITS/1 ML VIAL SQ SCH ×2 (10:55→22:01)
[2020-06-27] MEDS: POTASSIUM CL. PREMIX PERIPHER. 50 ML IV SCH ×2 (11:38→13:46)
[2020-06-27] MEDS: INSULIN REGULAR, HUMAN 100 UNIT/ML 3 ML VIAL SQ PRN ×2 (12:34→16:49)
[2020-06-27 16:11] VITALS: BP 167/88
--- NOTE | 2020-06-27 19:34 | NUR ---
MS RN OPENING NOTES PATIENT SLEEPING, EASY TO AWAKEN. A/OX3. STABLE ON RA, NO C/O PAIN OR SOB, BREATHING IS EVEN AND UNLABORED. RIGHT FEMORAL HD CATH PRESENT WITH NS RUNNING TKO ON PURPLE VALVE. HERRERA CATH PRESENT AND DRAINING WELL. SAFETY MEASURES IN PLACE AND PATIENT'S NEEDS MET. BED LOCKED, HOB ELEVATED, SIDE RAILS X2, CALL LIGHT WITHIN REACH. WILL CONTINUE TO MONITOR.
--- NOTE | 2020-06-27 19:56 | NUR ---
MS RN CLOSED NOTES PATIENT IS A/O X 3 WITH NO SIGNS OF DISTRESS IN ROOM AIR. NO COMPLAIN OF PAIN AT THIS MOMENT. HERRERA CATHETER INTACT. R FEMORAL HD CATH WITH PIGTAIL. PATIENT KEPT CLEAN AND DRY. ALL NEEDS, CARE, TREATMENT,AND MEDICATIONS WERE ADMINISTERED ANTICIPATED PER ORDER. SAFETY MEASURES ARE APPLIED, BED IS IN LOW POSITION SIDE RAILS UP X 2. CALL LIGHT WITHIN REACH WILL ENDORSE TO THE MENU PLANNER NURSE.
--- NOTE | 2020-06-27 22:05 | NUR ---
MS RN NOTE UNABLE TO SCAN BARCODE ON ERYTHROMYCIN EYE DROP; MANUAL BARCODE UTILIZED TO SCAN MED ON EMAR.
[2020-06-27] MEDS: *INSULIN REGULAR(HUMULIN R)HUM 100 UNIT/ML VIAL SQ PRN (22:26)
[2020-06-28] MEDS ORDERED: hydrALAZINE HCL 25 MG TABLET PO PRN (01:30)
--- NOTE | 2020-06-28 01:33 | NUR ---
MS RN NOTES PATIENT'S BP: 188/82, HR: 63. PROFESSOR OF FOREST PLANNING RIVKA HUTTON, MADE AWARE. RECEIVED ORDERS FOR PRN HYDRALAZINE 25 MG PO. ADMINISTERED PER ORDERS. WILL CONTINUE TO MONITOR.
[2020-06-28 06:17] LABS: BASOPHILS % (AUTO) 0.3 % (0.0-2.0); EOSINOPHILS % (AUTO) 1.2 % (0.0-6.0); HEMATOCRIT 33 % (33-45); LYMPHOCYTES # (AUTO) 2.8 /CMM (0.8-4.8); LYMPHOCYTES % (AUTO) 29.9 % (20.0-44.0); MEAN CORPUSCULAR HGB CONC 34 g/dl (31.0-36.0); MEAN CORPUSCULAR VOLUME 91 fL (82-100); MONOCYTES # (AUTO) 0.7 /CMM (0.1-1.30); MONOCYTES % (AUTO) 7.6 % (2.0-12.0); NEUTROPHILS # (AUTO) 5.8 /CMM (1.8-8.9); PLATELET COUNT (AUTO) 290 /CMM (150-450); RED BLOOD CELL COUNT(AUTO) 3.61 MIL/uL (4.0-5.2); WHITE BLOOD COUNT (AUTO) 9.5 K/uL (4.3-11.0)
[2020-06-28 06:44] LABS: ALBUMIN 3.3 g/dL (3.4-5.0); BILIRUBIN,TOTAL 0.7 mg/dL (0.2-1.0); CALCIUM, SERUM 8.5 mg/dL (8.5-10.1); CREATININE 1.2 mg/dL (0.6-1.3); PHOSPHORUS 2.9 mg/dL (2.5-4.9); TOTAL PROTEIN, SERUM 7.6 g/dL (6.4-8.2)
[2020-06-28] MEDS: INSULIN REGULAR, HUMAN 100 UNIT/ML 3 ML VIAL SQ PRN ×3 (06:54→17:05)
[2020-06-28] MEDS: BLOOD SUGAR DIAGNOSTIC 1 EACH STRIP VI SCH ×4 (06:54→22:43)
--- NOTE | 2020-06-28 07:43 | NUR ---
MS RN CLOSING NOTES PATIENT AWAKE IN BED. A/OX3. STABLE ON RA, NO C/O PAIN OR SOB, BREATHING IS EVEN AND UNLABORED. RIGHT FEMORAL HD CATH REMAINS INTACT & PATENT WITH NS RUNNING TKO ON PURPLE VALVE. HERRERA CATH REMAINS INTACT WITH 1100 ML OF CLEAR YELLOW URINE EMPTIED. SAFETY MEASURES IN PLACE AND PATIENT'S NEEDS MET. BED LOCKED, HOB ELEVATED, SIDE RAILS X2, CALL LIGHT WITHIN REACH. ENDORSED TO DAY SHIFT RN PLAN OF CARE.
[2020-06-28 08:00] VITALS: BP 165/85
--- NOTE | 2020-06-28 08:15 | NUR ---
m/s financing analyst: notes turner catheter removed as ordered with 250ml of clear yellow urine output in turner bag.
[2020-06-28] MEDS: ASPIRIN 325 MG TABLET PO SCH (08:25)
[2020-06-28] MEDS: K PHOS NEUTRAL 250 MG TABLET PO SCH (08:25)
[2020-06-28] MEDS: FAMOTIDINE (20 MG) 20 MG TABLET PO SCH ×2 (08:25→20:27)
[2020-06-28] MEDS: VENLAFAXINE XR 150 MG CAP.SR.24H PO SCH (08:25)
[2020-06-28] MEDS: AMLODIPINE BESYLATE 5 MG TABLET PO SCH (08:26)
[2020-06-28] MEDS: FERROUS SULFATE (325 MG) 325 MG/TAB TABLET PO SCH (08:26)
[2020-06-28] MEDS: CARVEDILOL 12.5 MG TABLET PO SCH ×2 (08:26→16:43)
[2020-06-28] MEDS: HEPARIN SODIUM, PORCINE 5000 UNITS/1 ML VIAL SQ SCH ×2 (08:28→20:31)
--- NOTE | 2020-06-28 08:45 | NUR ---
m/s medical billing service: notes supervise going to the bathroom and voided. instructed to call for assistance.
[2020-06-28] MEDS ORDERED: AMLODIPINE BESYLATE 5 MG TABLET PO SCH (09:00)
--- NOTE | 2020-06-28 09:15 | NUR ---
m/s morgue technician: md visit dr. champagne at bedside and updated plan of care re: d'c back to assisted living. pt c/o loose stool this morning, but no witness. md educated pt about loose stool, pt verbalized understanding. will continue to monitor.
[2020-06-28] MEDS: POTASSIUM CHLORIDE 20 MEQ TAB.PRT.SR PO SCH ×2 (09:16→10:29)
[2020-06-28] MEDS: ERYTHROMYCIN BASE OPHTH 3.5 GM TUBE EACHEYE SCH ×2 (09:16→20:40)
[2020-06-28] MEDS ORDERED: AMLO10TA4 PO (09:18)
[2020-06-28] MEDS ORDERED: AMLODIPINE BESYLATE 5 MG TABLET PO ONE (09:30)
--- NOTE | 2020-06-28 09:50 | NUR ---
m/s night clerk: notes dr. early (nephro) notified and made aware re: dr. champagne's request to remove hd cath, stated, "okay to remove." antonio (hd nurse) notified and made aware. bradley (cm) made aware re: home health order and will arrange it.
--- NOTE | 2020-06-28 10:15 | NUR ---
m/s devops solutions architect: notes bradley (clint) spoke to pt and wants to appeal, number given by case management for medicare appeal.
--- NOTE | 2020-06-28 11:00 | NUR ---
m/s dump grounds checker: notes antonio (hd nurse) at bedside and removed right femoral hd cath, jc. well. no active bleeding noted. dressing applied to site. will continue to monitor.
--- NOTE | 2020-06-28 12:00 | NUR ---
m/s manager operational: notes dr. champagne notified and made aware re: pt appealing her discharge. follow up made by bradley (case management) via telephone. also informed dr. champagne, pt is ambulatory, will not qualify for snf placement.
[2020-06-28 12:06] LABS: *SPE A/G RATIO 1.1 (0.7-1.7); *SPE ALBUMIN 2.7 g/dL (2.9-4.4); *SPE ALPHA-1-GLOBULIN 0.2 g/dL (0.0-0.4); *SPE ALPHA-2-GLOBULIN 0.7 g/dL (0.4-1.0); *SPE BETA GLOBULIN 0.8 g/dL (0.7-1.3); *SPE GLOBULIN, TOTAL 2.5 g/dL (2.2-3.9); *SPE M-SPIKE Not Observed g/dL (Not Observed); *SPEGAMMA GLOBULIN 0.8 g/dL (0.4-1.8)
--- NOTE | 2020-06-28 13:15 | NUR ---
RN NOTE RECEIVED CALL FROM DR BOWMAN WITH AN ORDER OF PT EVAL. THE ORDER IS READ BACK, VERIFIED. NOTED AND CARRIED OUT.
--- NOTE | 2020-06-28 13:15 | NUR ---
m/s velvet cutter: notes per bradley (case management), pt has a case number for her appeal. dr. champagne aware with order for physical therapy evaluation. order carried by mercedes. will continue to monitor.
--- NOTE | 2020-06-28 13:30 | NUR ---
m/s front office secretary: notes case management (kary) in the room and informed pt that her appeal was declined, form signed by pt and verbalized understanding.
--- NOTE | 2020-06-28 14:20 | NUR ---
m/s special effects person: notes attempted to insert iv, but unsuccessful. dr. champagne made aware.
[2020-06-28 16:00] VITALS: BP 154/76
[2020-06-28 16:38] VITALS: BP 159/76
--- NOTE | 2020-06-28 19:10 | NUR ---
m/s bench tool maker: notes report given to ciro (janneth) for continuity of care.
--- NOTE | 2020-06-28 19:35 | NUR ---
MS/RN OPENING NOTES: RECEIVED PATIENT AWAKE IN BED, A/OX3. VERBALLY RESPONSIVE AND ABLE TO MAKE NEEDS KNOWN. STABLE ON RA, NO C/O PAIN OR SOB, BREATHING IS EVEN AND UNLABORED. NO IV NOTED, MD AWARE. AMBULATORY. HAS A PT EVAL TOMORROW. NO HERRERA NOTED. PER OBIEE ARCHITECT, DR. BOWMAN ORDERED TO HAVE IT REMOVED. SAFETY MEASURES IN PLACE AND PATIENT'S NEEDS MET. BED LOCKED, HOB ELEVATED, SIDE RAILS X2, CALL LIGHT WITHIN REACH. WILL CONTINUE TO MONITOR ACCORDINGLY.
[2020-06-28 20:00] VITALS: BP 161/75
[2020-06-28] MEDS: ACETAMINOPHEN 325 MG TABLET PO PRN (20:37)
[2020-06-28 21:00] VITALS: BP 150/72
--- NOTE | 2020-06-28 22:45 | NUR ---
MS/RN NOTES: ACCUCHECK FOR HS IS 170. 3 UNITS REG INSULIN ADMINISTERED PER SLIDING SCALE. NO S/S OF HYPOGLYCEMIA/HYPERGLYCEMIA. PT REQUESTED FOR APPLE SAUCE. WILL CONTINUE TO MONITOR ACCORDINGLY.
[2020-06-28] MEDS: *INSULIN REGULAR(HUMULIN R)HUM 100 UNIT/ML VIAL SQ PRN (22:46)
[2020-06-29] MEDS: ZOLPIDEM TARTRATE 5 MG TABLET PO PRN ×2 (01:34→22:30)
--- NOTE | 2020-06-29 01:34 | NUR ---
MS/RN NOTES: PT. REQUESTED FOR SOMETHING TO HELP HER SLEEP. PER DR. TINEO, ORDER AMBIEN 5MG PO PRN HS FOR INSOMNIA. ADMINISTERED PO MED. TOLERATED WELL. VSS AND WILL CONTINUE TO MONITOR ACCORDINGLY.
--- NOTE | 2020-06-29 02:00 | NUR ---
MS/RN NOTES: MARY EFFECTIVE. PT IS ASLEEP AND COMFORTABLE IN BED. WILL CONTINUE TO MONITOR.
[2020-06-29] MEDS: BLOOD SUGAR DIAGNOSTIC 1 EACH STRIP VI SCH ×4 (06:30→22:37)
[2020-06-29] MEDS: INSULIN REGULAR, HUMAN 100 UNIT/ML 3 ML VIAL SQ PRN ×3 (06:31→17:06)
[2020-06-29 06:53] LABS: CALCIUM, SERUM 8.8 mg/dL (8.5-10.1); CREATININE 1.1 mg/dL (0.6-1.3); POTASSIUM 3.2 mmol/L (3.5-5.1)
--- NOTE | 2020-06-29 07:17 | NUR ---
MS/RN CLOSING NOTES: PATIENT IS IN BED, REMAINS A/OX3. VERBALLY RESPONSIVE AND ABLE TO MAKE NEEDS KNOWN. STABLE ON RA, NO C/O PAIN OR SOB, BREATHING IS EVEN AND UNLABORED. NO IV NOTED, MD AWARE. AMBULATORY. ACCUCHECK 157. ADMINISTERED 2 UNITS REG. INSULIN PER SLIDING SCALE. GIVEN A LIGHT SNACK TO PREVENT HYPOGLYCEMIA. SAFETY MEASURES IN PLACE AND PATIENT'S NEEDS MET. BED LOCKED, HOB ELEVATED, SIDE RAILS X2, CALL LIGHT WITHIN REACH. ALL NURSING NEEDS MET AND RENDERED. ALL DUE MEDS GIVEN ORDERED. WILL ENDORSE TO MORNING SHIFT FOR TELMA.
[2020-06-29 08:00] VITALS: BP 155/84
--- NOTE | 2020-06-29 08:00 | NUR ---
m/s machine captain: initial assessment received pt in bed awake, a/ox4. no c/o pain or any discomfort. for d'c planning. pt aware, but still wants to go home tomorrow. pt feels better as stated. will continue to monitor.
[2020-06-29] MEDS: ASPIRIN 325 MG TABLET PO SCH (08:45)
[2020-06-29] MEDS: CARVEDILOL 12.5 MG TABLET PO SCH ×2 (08:46→16:32)
[2020-06-29] MEDS: AMLODIPINE BESYLATE 5 MG TABLET PO SCH (08:46)
[2020-06-29] MEDS: FERROUS SULFATE (325 MG) 325 MG/TAB TABLET PO SCH (08:46)
[2020-06-29] MEDS: ERYTHROMYCIN BASE OPHTH 3.5 GM TUBE EACHEYE SCH ×2 (08:46→21:12)
[2020-06-29] MEDS: FAMOTIDINE (20 MG) 20 MG TABLET PO SCH ×2 (08:46→21:02)
[2020-06-29] MEDS: VENLAFAXINE XR 150 MG CAP.SR.24H PO SCH (08:46)
[2020-06-29] MEDS: HEPARIN SODIUM, PORCINE 5000 UNITS/1 ML VIAL SQ SCH ×2 (08:48→21:05)
[2020-06-29] MEDS ORDERED: AMLODIPINE BESYLATE 5 MG TABLET PO SCH (09:00)
[2020-06-29] MEDS: POTASSIUM CHLORIDE 20 MEQ TAB.PRT.SR PO SCH ×2 (09:21→11:10)
--- NOTE | 2020-06-29 10:00 | NUR ---
m/s digital analyst: md visit seen by behzad champagne agreed to go home tomorrow as stated.
--- NOTE | 2020-06-29 12:00 | NUR ---
m/s paradi operator: notes resting comfortable in bed. lunch served. hob elevated. will continue to monitor.
[2020-06-29 16:00] VITALS: BP 144/86
--- NOTE | 2020-06-29 16:25 | NUR ---
m/s spine supervisor: notes playing games in her phone at this time. no c/o pain. instructed to call for assistance. will monitor.
[2020-06-29] MEDS: ACETAMINOPHEN 325 MG TABLET PO PRN ×2 (16:32→22:32)
--- NOTE | 2020-06-29 19:05 | NUR ---
m/s accounts manager: notes report given to ciro (janneth) for continuity of care.
--- NOTE | 2020-06-29 19:30 | NUR ---
MS/RN OPENING NOTES: RECEIVED REPORT FROM MACK FARIAS. PATIENT AWAKE IN BED, A/OX4. VERBALLY RESPONSIVE AND ABLE TO MAKE NEEDS KNOWN. STABLE ON RA, NO C/O PAIN. NO SOB NOTED. BREATHING EVEN AND UNLABORED. NO IV NOTED, MD AWARE. AMBULATORY. FOR DC PLANNING. PER REPORT. PATIENT AGREED TO GO TO [facility] TOMORROW. SAFETY MEASURES IN PLACE AND PATIENT'S NEEDS MET. BED LOCKED, HOB ELEVATED, SIDE RAILS X2, CALL LIGHT WITHIN REACH. WILL CONTINUE TO MONITOR ACCORDINGLY.
[2020-06-29 20:00] VITALS: BP 136/80
--- NOTE | 2020-06-29 22:33 | NUR ---
MS/RN NOTES: PT. REQUESTED FOR AMBIEN. ADMINISTERED AMBIEN 5MG PO PRN FOR SLEEP ORDERED. TOLERATED WELL. VSS AND WILL CONTINUE TO MONITOR ACCORDINGLY.
--- NOTE | 2020-06-29 22:35 | NUR ---
MS/RN NOTES: ACCUCHECK FOR HS IS 188. 3 UNITS REG INSULIN ADMINISTERED PER SLIDING SCALE. NO S/S OF HYPOGLYCEMIA/HYPERGLYCEMIA. PT REQUESTED FOR APPLE SAUCE. WILL CONTINUE TO MONITOR ACCORDINGLY.
[2020-06-29] MEDS: *INSULIN REGULAR(HUMULIN R)HUM 100 UNIT/ML VIAL SQ PRN (22:38)
[2020-06-30] VITALS: BP 150/70
[2020-06-30] MEDS: BLOOD SUGAR DIAGNOSTIC 1 EACH STRIP VI SCH ×2 (06:38→11:28)
[2020-06-30] MEDS: INSULIN REGULAR, HUMAN 100 UNIT/ML 3 ML VIAL SQ PRN ×2 (06:39→11:41)
--- NOTE | 2020-06-30 06:53 | NUR ---
MS/RN CLOSING NOTES: PATIENT REMAINS IN BED, A/OX4. STABLE ON RA, NO C/O PAIN OR SOB, BREATHING IS EVEN AND UNLABORED. NO IV NOTED, MD AWARE. AMBULATORY. ACCUCHECK FOR AC IS 152. ADMINISTERED 2 UNITS REG. INSULIN PER SLIDING SCALE. SAFETY MEASURES IN PLACE AND PATIENT'S NEEDS MET. SAFETY MEASURES IN PLACE. BED IN LOCKED, LOW, POSITION WITH HOB ELEVATED, SIDE RAILS X2 UP, CALL LIGHT WITHIN REACH. ALL NURSING NEEDS MET AND RENDERED. ALL DUE MEDS GIVEN ORDERED. WILL ENDORSE TO MORNING SHIFT FOR TELMA.
--- NOTE | 2020-06-30 07:30 | NUR ---
MS/RN OPENING NOTE Patient resting in bed, A&O x 4. No complaints of pain/discomfort at this time. Breathing even and non-labored on RA, no SOB noted. No cardiac distress noted. No IV access noted, MD aware. Sensation from all peripheral extremities intact. Bed locked to its lowest position, side rails x 2 up, call light in hand. Will continue with current medical management.
[2020-06-30 07:47] LABS: CALCIUM, SERUM 8.9 mg/dL (8.5-10.1); CREATININE 1.1 mg/dL (0.6-1.3); MAGNESIUM 1.9 mg/dL (1.8-2.4); POTASSIUM 3.9 mmol/L (3.5-5.1)
[2020-06-30 08:00] VITALS: BP 172/85
[2020-06-30] MEDS ORDERED: METFORMIN 850 MG TABLET PO SCH (09:30)
[2020-06-30] MEDS: ASPIRIN 325 MG TABLET PO SCH (09:40)
[2020-06-30] MEDS: CARVEDILOL 12.5 MG TABLET PO SCH (09:40)
[2020-06-30] MEDS: FERROUS SULFATE (325 MG) 325 MG/TAB TABLET PO SCH (09:40)
[2020-06-30] MEDS: ERYTHROMYCIN BASE OPHTH 3.5 GM TUBE EACHEYE SCH (09:40)
[2020-06-30 09:41] VITALS: BP 172/85
[2020-06-30] MEDS: AMLODIPINE BESYLATE 5 MG TABLET PO SCH (09:41)
[2020-06-30] MEDS: VENLAFAXINE XR 150 MG CAP.SR.24H PO SCH (09:41)
[2020-06-30] MEDS: FAMOTIDINE (20 MG) 20 MG TABLET PO SCH (09:41)
--- NOTE | 2020-06-30 10:45 | NUR ---
MS/RN NOTE Per CHING Sood, insurance will arrange patient's home health service.
--- NOTE | 2020-06-30 12:00 | NUR ---
MS/RN NOTE Per CHING Sood, insurance will not authorize patient's home health order as it is not covered.
--- NOTE | 2020-06-30 14:22 | NUR ---
MS/INDUSTRIAL HYGIENE ENGINEER NOTE Patient picked up by Marcella (operations support manager of independent living). Patient remained stable throughout stay, VSS, afebrile, no acute distress noted. Denies any pain/discomfort at this time. Breathing even and non-labored on RA. No respiratory or cardiac distress noted. No IV access noted. Skin remained intact. Educated patient regarding discharge instructions, answered all her questions to her satisfaction, patient verbalized understanding. Patient left facility safely at 1422 along with all hospital documents, prescription, and belongings.
== END 2020-06-30 15:00 | DRG 438 ==
LOC: ER 18:06 → ICU 21:34 → MEDSG1 06-24 13:27 → MED 06-25 14:17
PROVIDERS: ADMIT Internal Medicine; ATTEND Internal Medicine
PROC: 5A1D70Z Performance of Urinary Filtration, Intermittent, Less than 6 Hours Per Day (ICD-10-PCS; principal; 2020-06-23)
DX: K85.90 Acute pancreatitis without necrosis or infection, unspecified (principal); N17.0 Acute kidney failure with tubular necrosis; R57.1 Hypovolemic shock; E87.1 Hypo-osmolality and hyponatremia; E87.2 Acidosis; J90 Pleural effusion, not elsewhere classified; E86.0 Dehydration; K29.00 Acute gastritis without bleeding; I48.91 Unspecified atrial fibrillation; F32.9 Major depressive disorder, single episode, unspecified; E11.40 Type 2 diabetes mellitus with diabetic neuropathy, unspecified; D64.9 Anemia, unspecified; E78.5 Hyperlipidemia, unspecified; E83.39 Other disorders of phosphorus metabolism; E83.42 Hypomagnesemia; N18.9 Chronic kidney disease, unspecified; I95.9 Hypotension, unspecified; Z79.84 Long term (current) use of oral hypoglycemic drugs; I12.9 Hypertensive chronic kidney disease with stage 1 through stage 4 chronic kidney disease, or unspecified chronic kidney disease; Z79.4 Long term (current) use of insulin; E87.5 Hyperkalemia; E11.649 Type 2 diabetes mellitus with hypoglycemia without coma; D72.829 Elevated white blood cell count, unspecified
CPT/HCPCS: 36415; 36600; 70450-TC; 71045-TC; 80048-TC; 80053-TC; 80061-TC; 80076-TC; 81001; 82150-TC; 82248-TC; 82550-TC; 82570-TC; 82728-TC; 82803-TC; 82962-TC; 83540-TC; 83605-TC; 83690-TC; 83735-TC; 83935-TC; 83970; 84100-TC; 84155; 84155-TC; 84165; 84300-TC; 84443-TC; 84484-TC; 85025-TC; 85730-TC; 86706; 87040-TC; 87081-TC; 87086-TC; 87340; 90935-TC; 97116-TC; 97530-TC; A4216; C1750; C1751; C9113; C9803; G0378; J0610; J0696; J1170; J1644; J1815; J2405; J2543; J3475; J3480; J3490; J7030; J7050; J7060

== ENCOUNTER 2020-08-14 13:30 | Inpatient (IN) | payer MEDICARE ==
[~2020-08-14] VITALS: Ht 160 cm; Wt 63.0 kg
[~2020-08-14 13:30] MED LIST: AMLO10TA4 PO; ASPI-992 PO; CARV12.52 PO; CETI-108 PO; DOCU250C14 PO; ESCI10TA PO; FAMO20TA8 PO; FERR325T23 PO; GABA-532 PO; LORA-259 PO; METF-441 PO; ONDA4TAB5 PO; PRAV80TA21 PO; VENL150C58 PO; ZOLP5TAB8 PO
--- NOTE | 2020-08-14 13:45 | NUR ---
SUMA RA 79 From [facility] "appears to ble slower to respond than usual found new meds and she may have taken more than prescribed." Patient a/ox2, appears to be confused at times. Breathing even and unlabored, no sob noted. Needs attended.
[2020-08-14] MEDS ORDERED: LOPE2CAP PO (13:49)
--- NOTE | 2020-08-14 14:00 | NUR ---
BLOOD DRAWN AND SENT TO LAB.
[2020-08-14 14:09] LABS: BASOPHILS # (AUTO) 0.1 /CMM (0.0-0.2); BASOPHILS % (AUTO) 0.9 % (0.0-2.0); EOSINOPHILS % (AUTO) 1.1 % (0.0-6.0); HEMATOCRIT 32 % (33-45); HEMOGLOBIN 10.6 g/dL (11.5-14.8); LYMPHOCYTES % (AUTO) 24.3 % (20.0-44.0); MEAN CORPUSCULAR HGB CONC 33 g/dl (31.0-36.0); MEAN CORPUSCULAR VOLUME 103 fL (82-100); MONOCYTES % (AUTO) 8.1 % (2.0-12.0); NEUTROPHILS % (AUTO) 65.6 % (43.0-81.0); PLATELET COUNT (AUTO) 290 /CMM (150-450); RED BLOOD CELL COUNT(AUTO) 3.11 MIL/uL (4.0-5.2); WHITE BLOOD COUNT (AUTO) 12.3 K/uL (4.3-11.0)
--- NOTE | 2020-08-14 14:30 | NUR ---
FOUND PATIENT WALKING, NO DISTRESS NOTED. ASSISTED BACK TO BED, RISK FOR FALL.
[2020-08-14 14:31] LABS: BILIRUBIN,URINE Negative (NEGATIVE); COLOR,URINE YELLOW (YELLOW); LEUKOCYTE ESTERASE ,URINE Trace (NEGATIVE); NITRITE, URINE Positive (NEGATIVE); PROTEIN,URINE Negative (NEGATIVE); UGLUCOSE Negative (NEGATIVE); UROBILINOGEN,URINE 0.2 EU/dL (0.2)
[2020-08-14 14:32] LABS: BACTERIA,URINE 2+ /HPF (None Seen); RBC,URINE NONE SEEN /HPF (0-2); SQUAMOUS EPITHELIAL CELL,UR Few /HPF (None Seen)
[2020-08-14] MEDS ORDERED: CEFTRIAXONE 1GM BAG (ER ONLY) 1 GM/50 ML PIGGYBACK IV ONE (15:00)
[2020-08-14] MEDS ORDERED: CEFTRIAXONE 1GM BAG (ER ONLY) 50 ML IV ONE (15:09)
--- NOTE | 2020-08-14 16:10 | NUR ---
PATIENT RESTING, NO DISTRESS NOTED.
--- NOTE | 2020-08-14 17:25 | NUR ---
PATIENT A/OX2, BREATHING EVEN AND UNLABORED, NEEDS ATTENDED. KEPT COMFORTABLE.
[2020-08-14 17:49] LABS: CALCIUM, SERUM 9.2 mg/dL (8.5-10.1); CARBON DIOXIDE 19 mmol/L (21-32); CHLORIDE 98 mmol/L (98-107); CREATININE 1.3 mg/dL (0.6-1.3); GLUCOSE 190 mg/dL (74-106); SODIUM SERUM 135 mmol/L (136-145); UREA NITROGEN, BLOOD 20 mg/dL (7-18)
[2020-08-14 17:50] LABS: ALANINE AMINOTRANSFERASE 35 U/L (12-78); ALBUMIN 3.7 g/dL (3.4-5.0); ALKALINE PHOSPHATASE 58 U/L (46-116); ASPARTATE AMINOTRANSFERASE 28 U/L (15-37); BILIRUBIN,DIRECT 0.1 mg/dL (0.0-0.2); BILIRUBIN,TOTAL 0.4 mg/dL (0.2-1.0); SERUM AMMONIA 41 umol/L (11-32); TOTAL PROTEIN, SERUM 7.3 g/dL (6.4-8.2)
[2020-08-14 17:53] LABS: ACETAMINOPHEN < 0 ug/ml (10-30); ALCOHOL, BLOOD < 3 mg/dL (0-0)
--- NOTE | 2020-08-14 17:54 | NUR ---
STILL WAITING ON DISTRICT BRANCH MANAGER TO CALL BACK.
--- NOTE | 2020-08-14 18:05 | NUR ---
PATIENT CLEANED, CHANGED TO [facility] GOWN AND LINEN
--- NOTE | 2020-08-14 18:26 | NUR ---
PAGED DR. BOWMAN ANSWERING SERVICE.
--- NOTE | 2020-08-14 18:47 | NUR ---
RECEIVED A CALL FROM SEBAS HUTTON, UNSURE ABOUT ADMISSION, WILL CALL BACK.
--- NOTE | 2020-08-14 21:00 | NUR ---
PATIENT CHANGED INTO CLEAN GOWN AND CLEAN SHEETS.
--- NOTE | 2020-08-15 00:26 | NUR ---
BED ASSIGNMENT 307-1
--- NOTE | 2020-08-15 01:10 | NUR ---
REPORT GIVEN TO YOKO PATEL FOR TELMA.
[2020-08-15 02:00] VITALS: BP 123/73
--- NOTE | 2020-08-15 02:00 | NUR ---
PATIENT TAKEN UP TO ASSIGNED ROOM FOR TELMA.
--- NOTE | 2020-08-15 02:00 | NUR ---
RN NOTE Patient Received. Patient is awake, alert and oriented x2 with episodes of confusion. Breathing even and non labored continues on room air with no signs of acute distress or shortness of breath. Patient is noted with IV site to L hand 18G noted patent and intact. Skin is noted intact. Patient with orders for tele monitor and noted to be NSR. Patient is ambulatory with assistance, gait is noted to be steady. Safety precautions in place. Bed in lowest position and locked. All needs attended to promptly. Call light within reach. Will continue plan of care as ordered.
[2020-08-15] MEDS ORDERED: LOPERAMIDE HCL (2 MG CAP) 2 MG CAPSULE PO PRN (02:30)
[2020-08-15] MEDS ORDERED: INSULIN REGULAR, HUMAN 100 UNIT/ML 3 ML VIAL SQ PRN (02:30)
[2020-08-15] MEDS ORDERED: DEXTROSE 50%-WATER 50 ML DISP.SYRIN IV PRN (02:30)
[2020-08-15] MEDS ORDERED: LORAZEPAM 1 MG TABLET PO PRN (02:30)
[2020-08-15] MEDS ORDERED: ONDANSETRON 4 MG TAB.RAPDIS PO PRN (02:30)
[2020-08-15] MEDS ORDERED: ZOLPIDEM TARTRATE 5 MG TABLET PO PRN (02:30)
[2020-08-15] MEDS ORDERED: IV 1/2NS 1000 ML 1,000 ML IV PRN (02:30)
[2020-08-15 04:00] VITALS: BP 143/73
[2020-08-15] MEDS: BLOOD SUGAR DIAGNOSTIC 1 EACH STRIP IN SCH ×2 (06:41→12:49)
--- NOTE | 2020-08-15 07:46 | NUR ---
RN NOTE Patient is awake, alert and oriented x2 with episodes of confusion. Breathing even and non labored continues on room air with no signs of acute distress or shortness of breath. Patient is noted with IV site to L hand 18G noted patent and intact. Skin is noted intact. Patient with orders for tele monitor and noted to be NSR. Safety precautions in place. Bed in lowest position and locked. All needs attended to promptly. Call light within reach. Will endorse to continue plan of care as ordered.
[2020-08-15 07:59] LABS: BASOPHILS % (AUTO) 0.2 % (0.0-2.0); EOSINOPHILS % (AUTO) 1.1 % (0.0-6.0); HEMATOCRIT 35 % (33-45); HEMOGLOBIN 11.2 g/dL (11.5-14.8); LYMPHOCYTES # (AUTO) 2.9 /CMM (0.8-4.8); LYMPHOCYTES % (AUTO) 25.1 % (20.0-44.0); MEAN CORPUSCULAR HGB CONC 32 g/dl (31.0-36.0); MEAN CORPUSCULAR VOLUME 102 fL (82-100); MONOCYTES # (AUTO) 0.7 /CMM (0.1-1.30); NEUTROPHILS # (AUTO) 7.7 /CMM (1.8-8.9); NEUTROPHILS % (AUTO) 67.6 % (43.0-81.0); PLATELET COUNT (AUTO) 304 /CMM (150-450); WHITE BLOOD COUNT (AUTO) 11.4 K/uL (4.3-11.0)
[2020-08-15 08:00] VITALS: BP 148/76
[2020-08-15 08:02] LABS: CALCIUM, SERUM 10.6 mg/dL (8.5-10.1); CREATININE 1.1 mg/dL (0.6-1.3); POTASSIUM 3.7 mmol/L (3.5-5.1)
[2020-08-15] MEDS: DOCUSATE SODIUM 250 MG CAPSULE PO SCH ×2 (08:21→08:35)
[2020-08-15 08:40] VITALS: BP 148/76
[2020-08-15] MEDS ORDERED: cetrizine 10 MG TABLET PO SCH (09:00)
[2020-08-15] MEDS ORDERED: FAMOTIDINE (20 MG) 20 MG TABLET PO SCH (09:00)
[2020-08-15] MEDS ORDERED: CARVEDILOL 6.25 MG TABLET PO SCH (09:00)
[2020-08-15] MEDS ORDERED: ESCITALOPRAM OXALATE (10 MG) 10 MG TABLET PO SCH (09:00)
[2020-08-15] MEDS ORDERED: VENLAFAXINE XR 150 MG CAP.SR.24H PO SCH (09:00)
[2020-08-15] MEDS ORDERED: ASPIRIN 325 MG TABLET PO SCH (09:00)
[2020-08-15] MEDS ORDERED: FERROUS SULFATE (325 MG) 325 MG/TAB TABLET PO SCH (09:00)
[2020-08-15] MEDS ORDERED: GABAPENTIN 300 MG CAPSULE PO SCH (09:00)
[2020-08-15] MEDS ORDERED: ASPI-992 PO (10:38)
--- NOTE | 2020-08-15 13:00 | NUR ---
RN NOTES PATIENT STABLE. DISCHARGED. PICKED UP VIA CAR FROM [facility]. ROUTINE MEDS WERE GIVEN. TEACHING DISCHARGE DONE
[2020-08-15] MEDS ORDERED: ATORVASTATIN 40 MG TABLET PO SCH (22:00)
[2020-08-15] MEDS ORDERED: PRAVASTATIN SODIUM 20 MG TABLET PO SCH (22:00)
== END 2020-08-15 11:30 | DRG 92 ==
LOC: ER 13:32 → TRANSITION 21:59 → UNDOADMIN 21:59 → EDBD 21:59 → TRANSITION 08-15 00:30 → MED 08-15 00:30 → TELE 08-15 03:00 → MED 08-15 03:00 → UNDODISIN 08-15 11:30
PROVIDERS: ADMIT Internal Medicine; ATTEND Internal Medicine
DX: G92 Toxic encephalopathy (principal); N30.00 Acute cystitis without hematuria; T42.6X5A Adverse effect of other antiepileptic and sedative-hypnotic drugs, initial encounter; Y92.099 Unspecified place in other non-institutional residence as the place of occurrence of the external cause; E11.22 Type 2 diabetes mellitus with diabetic chronic kidney disease; E86.0 Dehydration; I12.9 Hypertensive chronic kidney disease with stage 1 through stage 4 chronic kidney disease, or unspecified chronic kidney disease; N18.9 Chronic kidney disease, unspecified; E11.40 Type 2 diabetes mellitus with diabetic neuropathy, unspecified; Z79.84 Long term (current) use of oral hypoglycemic drugs; Z20.822 Contact with and (suspected) exposure to COVID-19
CPT/HCPCS: 36415; 71045-TC; 80048-TC; 80076-TC; 81001; 82140-TC; 82962-TC; 83605-TC; 83690-TC; 84484-TC; 85025-TC; 85730-TC; 87040-TC; 87081-TC; 87086-TC; 87186-TC; C9803; G0378; G0480; J0696; J1815; J3490